=== PATIENT | male | born 1985 ===

== ENCOUNTER 2020-12-30 10:15 | Outpatient (RCR) | payer OTHER, SELFPAY ==
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
[2020-12-14 16:19] VITALS: BMI 23.9
--- NOTE | 2020-12-15 10:56 | PC.ADMIT ---
Patient referred to [facility] by his therapist d/t increased depression with passive SI, no plan or intent and increased anxiety secondary to work related stressors. 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 Patient is taking a NIC[employer] from work to work on his mental health. Patient struggling with low confidence and low self esteem. He is not on any current prescription medications. He lives with his and two children. Reports his , parents, and friends are his support system. He has been smoking marijuana in the evenings to cope. Patient is alert and oriented x4. Calm and cooperative. Presents with depressed mood and anxious affect. Patient reports passive Si having thoughts that, come in and out associated with stress. Patient denied plan or intent to kill himself. Reports supports including his , parents and friends. Patient gave verbal permission to email him a endoscopic technician of his safety plan. Patient has the crisis numbers if needed. Patient is not on any current prescription medication. Medications reconciled with pharmacy who stated no current medications, no record of Albuteral inhaler.
--- NOTE | 2020-12-16 16:36 | PC.NURSE ---
case opened in treatment team
--- NOTE | 2020-12-20 14:39 | P.PNPSP_ITS ---
Subjective Subjective Date of Service: 12/20/20 Reason For Visit: Anxiety D/o, ADHD, Hx of Depression Guardianship: No Medical Problems Affecting Mental Status: No Interim History: Dalton reports overall feeling okay . Denies any type of th oughts of harm to self or others. States he feels he is learning ways to deal with his ADHD, anxiety, and major depressive disorder through group participation and skill building. He is not interested in psychiatric medications at this time. Attending Groups: Yes Review of Systems Acute medical concerns: No Medical Review of Systems: unchanged Review of Systems Review of Systems Yes all other systems are reviewed and are negative Constitutional: Reports no additional constitutional complaints Eyes: Reports no additional eye complaints Reports Normal hearing present Cardiovascular: Reports no additional cardiovascular complaints Reports Normal hearing present Diagnostics Vital Signs (24Hr): Body Mass Index 23.9 Assessment & Plan Assessment & Plan (1) ADHD (attention deficit hyperactivity disorder): Status: Acute Code(s): F90.9 - Attention-deficit hyperactivity disorder, unspecified type (2) PEACE (generalized anxiety disorder): Status: Acute Code(s): F41.1 - Generalized anxiety disorder Assessment and Plan: Patient reports he feels his anxiety is being managed currently, is not interested in any type of medications at this time. (3) MDD (major depressive disorder), recurrent episode, moderate: Status: Acute Code(s): F33.1 - Major depressive disorder, recurrent, moderate Assessment and Plan: Patient reports that he feels his depressive symptoms are beginning to improve, he is finding groups helpful in program. He denies any type of thought of harm to self or others. Not interested in any medications at this time. Assessment and Plan: 1. Patient currently does not prescribed any psychiatric medications. States he will ask to meet with us if begins to find any symptoms troubling, and if would like to start medication. 2. Follow-up as per protocol. Patient educated on: diagnosis, medication risk/benefits and therapeutic strategies Informed Consent: understands Reason for contiued partial hosp. stay Substantial Risk for: inability to function Certification I certify that partial hospital treatment is medically necessary due to the symptoms and problems resulting from the patient's mental illness and the failure to treat the patient at the partial hospital level of care would likely result in the patient requiring inpatient psychiatric care which could not be prevented at a less intensive level of care. Greater than 50% of the session was spent on counseling and/or coordination of care Discharge Plan Discharge Attending provider: Joe Hernandez Primary Care Provider: Brandt Rush Medications: No Action No Known Home Meds RF: 0 Referrals: Brandt Rush MD [Primary Care Provider] - 1 Week Telehealth Telehealth Location of provider rendering services: practice address Location of patient: address on file Patient Identification confirmed using: Name, : Yes Telehealth method: video Patient verbally consented to treatment: Yes Patient verbally consented to billing insurance company: Yes Patient informed of any privacy concerns related to visit: Yes Time spent with patient (mins): 15
--- NOTE | 2020-12-22 12:26 | PC.NURSE ---
Pt spoke to me after the second group today. he said he has a sinus infection and feels very runned-down. He asked to take the rest of the day off. He said he is safe.
--- NOTE | 2020-12-27 16:09 | HO.PHPPROGNO ---
Subjective Subjective Date of Service: 12/27/20 Reason For Visit: Anxiety D/o, ADHD, Hx of Depression Guardianship: No Attending Groups: Yes Review of Systems Acute medical concerns: No Medical Review of Systems: unchanged Mental Status Exam Mental Status Exam Narrative: Well-nourished, will develop male, in no apparent distress. Id alert and oriented x4. No involuntary movements noted, motor activity calm. Eye contact within normal limits. Manner in behavior were common cooperative. Speech was fluent, unimpaired. Mood described as I'm doing okay . Affect slightly anxious although appropriate. No evidence of delusional thoughts or hallucinations. Thought content normal, future oriented. Denies any type of thought of harm to self or others. Appears to be reliable historian. Judgment and insight fair. Ambulation not observed. Diagnostics Vital Signs (24Hr): Body Mass Index 23.9 Assessment & Plan Assessment & Plan (1) ADHD (attention deficit hyperactivity disorder): Status: Acute Code(s): F90.9 - Attention-deficit hyperactivity disorder, unspecified type Assessment and Plan: Patient does not report any type of symptoms related to ADHD at this time. (2) PEACE (generalized anxiety disorder): Status: Acute Code(s): F41.1 - Generalized anxiety disorder Assessment and Plan: Patient denies any concerns with anxiety at this time. (3) MDD (major depressive disorder), recurrent episode, moderate: Status: Acute Code(s): F33.1 - Major depressive disorder, recurrent, moderate Assessment and Plan: Patient reports he is feeling better with group participation in program, continues not interested medications at this time. Patient was encouraged to reach out if needed during the remainder of his time here. He stated that he would do so. Assessment and Plan: 1. Patient is not interested in any type of medication at this time, appears to be benefitting well from PHP participation. 2. Follow-up as per protocol. Patient educated on: diagnosis, medication risk/benefits and therapeutic strategies Informed Consent: understands Reason for contiued partial hosp. stay Substantial Risk for: inability to function Certification I certify that partial hospital treatment is medically necessary due to the symptoms and problems resulting from the patient's mental illness and the failure to treat the patient at the partial hospital level of care would likely result in the patient requiring inpatient psychiatric care which could not be prevented at a less intensive level of care. Greater than 50% of the session was spent on counseling and/or coordination of care Discharge Plan Discharge Attending provider: Joe Hernandez Primary Care Provider: Brandt Rush Medications: No Action No Known Home Meds RF: 0 Referrals: Brandt Rush MD [Primary Care Provider] - 1 Week Telehealth Telehealth Location of provider rendering services: practice address Location of patient: address on file Patient Identification confirmed using: Name, : Yes Telehealth method: video Patient verbally consented to treatment: Yes Patient verbally consented to billing insurance company: Yes Patient informed of any privacy concerns related to visit: Yes Time spent with patient (mins): 15
--- NOTE | 2020-12-29 11:05 | HO.PHPPROGNO ---
Subjective Subjective Date of Service: 12/29/20 Reason For Visit: Anxiety D/o, ADHD, Hx of Depression Guardianship: No Medical Problems Affecting Mental Status: No Interim History: Dalton Reports feeling helpless. Although he denies any intent or plan, he does report that he is continuing with ideations of suicide. He states that he does not want medications, but feels he has not fully learned the necessary coping skills in order to function well in home and work life. He hopes to continue learning and practicing these skills while here. Attending Groups: Yes Review of Systems Acute medical concerns: No Medical Review of Systems: unchanged Review of Systems Review of Systems Yes all other systems are reviewed and are negative Mental Status Exam Mental Status Exam Narrative: Well groomed, well nourished male. Fully participated in encounter. No involuntary movements noted, motor activity calm. Ambulation not observed. Patient denies any type of active SI, does endorse passive SI at times, with no plan/intent. Patient Appearance: Well Grooomed and Appropriate Patient Orientation: Person, Place, Time and Situation Level of Consciousness: Appropriate and Alert Patient Behavior: Appropriate, Cooperative and Good Eye Contact Mood Description: Appropriate, Depressed and Anxious Affect Description: Appropriate, Depressed and Anxious Patient Cognition Impaired: No Ability to Follow Directions: Excellent Speech Pattern: Clear, Appropriate and Coherent Memory Description: Intact Hallucinations: None Delusions: Not Present Thought Process: Intact, Goal Oriented and Linear Thought Content: positive for Suicidal Ideation (describes as thoughts of si, but no plan/intent at this time.) Depressive Symptoms: Increased Anxiety, Loss of Int. in Activity, Feelings of Worthlessness (describes feelings of helplessness as well. ), Unhappiness and Difficulty Concentrating Judgement: Fair Diagnostics Vital Signs (24Hr): Body Mass Index 23.9 Assessment & Plan Assessment & Plan (1) MDD (major depressive disorder), recurrent episode, moderate: Status: Acute Code(s): F33.1 - Major depressive disorder, recurrent, moderate Assessment and Plan: Candida gay reports feeling helpless, states he is not yet where he is normally regarding a level of functioning. He does at this time endorse passive SI, states that they come and go, that he gets ideations, but no plan or intent. He wants to be able to continue in group therapy, so that he can build and practice stronger coping skills. He states he wants to be able to not have any type of suicidal ideation when he leaves here. He believes that group therapy is helping him tremendously, and he would rather continue with that rather than start a medication at this time. (2) PEACE (generalized anxiety disorder): Status: Acute Code(s): F41.1 - Generalized anxiety disorder Assessment and Plan: 1. Patient would do best by continuing group therapy at this time in [facility]. 2. Follow-up as per protocol. Patient educated on: diagnosis and therapeutic strategies Informed Consent: understands Reason for contiued partial hosp. stay Substantial Risk for: harm to self and inability to function Certification I certify that partial hospital treatment is medically necessary due to the symptoms and problems resulting from the patient's mental illness and the failure to treat the patient at the partial hospital level of care would likely result in the patient requiring inpatient psychiatric care which could not be prevented at a less intensive level of care. Greater than 50% of the session was spent on counseling and/or coordination of care Discharge Plan Discharge Attending provider: Joe Hernandez Primary Care Provider: Brandt Rush Medications: No Action No Known Home Meds RF: 0 Referrals: Brandt Rush MD [Primary Care Provider] - 1 Week Stand Alone Forms: Patient Portal Discharge page Telehealth Telehealth Location of provider rendering services: practice address Location of patient: address on file Patient Identification confirmed using: Name, : Yes Telehealth method: video Patient verbally consented to treatment: Yes Patient verbally consented to billing insurance company: Yes Patient informed of any privacy concerns related to visit: Yes Time spent with patient (mins): 15
--- NOTE | 2020-12-30 15:57 | PC.NURSE ---
I called and LM for pt's therapist, Tam Oneill. I let him know about pt's discharge from [facility], which was a bit premature after pt's health insurance would not cover more days due to pt's decision to abstain from psychiatric medications. I left my number and offered to talk if he would like to call.
--- NOTE | 2020-12-31 08:47 | PC.NURSE ---
Patient discharged from the program on 12/30/20. Patient denied SI, no safety concerns. Patient reports he has much support from his family. Has the crisis number if needed. He is not on any prescription medications.
--- NOTE | 2021-01-04 12:23 | PC.NURSE ---
Patient reports her PCP left the [facility] in [place]. Patient wanted assistance in finding a new PCP. Called [address] #[phone] and was told that patient was reassigned to a new provider Joselyn Castañeda. Patient is aware and will call to set up an appointment if needed.
== END 2020-12-30 23:55 | disposition home or self-care (01) ==
LOC: HO.PHPA 10:15
PROVIDERS: PCP Internal Medicine; Visit Provider Psychiatry & Neurology Psychiatry
DX: F33.1 Major depressive disorder, recurrent, moderate (principal); F41.1 Generalized anxiety disorder; F90.9 Attention-deficit hyperactivity disorder, unspecified type
CPT/HCPCS: 90853